=== PATIENT | male | born 1965 | race Caucasian/White ===

== ENCOUNTER → 2017-06-22 | Outpatient (CLI) | payer OTHER ==
--- NOTE | 2017-06-23 07:42 | MRI ---
MRI right knee without contrast Indication: Right knee pain with swelling Technique: Multiplanar, multi sequence imaging of the right knee without IV contrast administration. Findings: The extensor mechanism is intact.There is severe tendinopathy of the proximal and mid white lar tendon without evidence of tear. There is prepatellar edema without evidence of localization to s uggest bursitis. The patellofemoral compartment demonstrates full thickness chondral fissuring of the lateral patellar articular cartilage with subcortical cyst formation and edema. The remaining median patellar ridge and medial patellar articular cartilage demonstrates moderate thinning. Small surface osteophytes are noted within the lateral patellofemoral compartment with a small subcortical cyst wi thin the femoral trochlea. There is a moderate-sized joint effusion with small osteochondral bodies n oted within the inferior aspect of the lateral pouch for example on axial image 24. Pes anserine tendons are normal. Popliteal fossa demonstrates no cyst. The popliteus muscle and tendo n are intact. The medial femorotibial compartment demonstrates full thickness cartilage loss with moderate subchond ral bone marrow edema and cystic change within the tibial plateau and medial femoral condyle. Moderat e-sized surface osteophytes are also noted. The lateral femorotibial compartment demonstrates diffuse moderate thinning of articular cartilage. There is high-grade chondral thinning with subcortical cys t formation within the nonweightbearing anterior lateral femoral condyle seen on sagittal image 13. T here is mild edema within the infrapatellar fat as well. Intermediate signal within the PCL consistent with mucoid degeneration likely in the setting of chron ic PCL sprain. There is no high-grade or full thickness tear. ACL is intact. Both the superficial MCL and fibular collateral ligaments demonstrate intermediate PD signal and thickening consistent with c hronic sprain. No full thickness or acute tear identified. Biceps femoris iliotibial band are intact. The lateral meniscus demonstrates no evidence of tear. The medial meniscus demonstrates a severely ma cerated tear of the meniscal body with extrusion of the meniscal body fragments into the medial gutte r seen on coronal image 20, there is extension of tear in a vertical longitudinal orientation into th e anterior horn and a more oblique, undersurface tear of the posterior horn seen best on sagittal kartik ge 24. Impression: 1.Advanced medial femorotibial compartment osteoarthrosis evidenced by full thickness chondral loss, subchondral marrow cystic change, edema and osteophyte formation. 2. Moderate patellofemoral and lateral femorotibial compartment osteoarthrosis with focal areas of fu ll thickness cartilage loss and subcortical cyst formation within both compartments as discussed abov e. 3. Severely macerated, chronic tear of the medial meniscal body with extrusion of the medial body men iscal fragments into the medial gutter. The meniscal body tear propagates posteriorly into an oblique ly oriented under surface tear of the posterior horn and avertical longitudinal orientated tear propa gating into the anterior horn. 4. Diffusely increased signal within the PCL consistent with mucoid degeneration and or sequela of ch ronic PCL sprain . 5. Chronic sprains of the superficial MCL and fibular collateral ligaments. 6. Severe tendinopathy of the patellar tendon with reactive soft tissue edema/inflammation within the prepatellar fat. 7. Moderate-sized joint effusion with synovitis and a few small osteochondral bodies within the later al pouch. Reported By:
== END | disposition home or self-care (01) ==
LOC: RAD 09:17
PROVIDERS: ATTEND Specialist
PROC: BQ37ZZZ Magnetic Resonance Imaging (MRI) of Right Knee (ICD-10-PCS; principal; 2017-06-22)
DX: M17.11 Unilateral primary osteoarthritis, right knee (principal); M25.561 Pain in right knee
CPT/HCPCS: 73721